=== PATIENT | female | born 1980 | race African-American/Black ===

== ENCOUNTER → 2023-02-08 | Outpatient (CLI) | payer MEDICARE | LOC: DX 10:18 | PROVIDERS: ATTEND Surgery | DX: K44.9 Diaphragmatic hernia without obstruction or gangrene (principal); K21.9 Gastro-esophageal reflux disease without esophagitis; D64.9 Anemia, unspecified | CPT/HCPCS: 74246; 81025 ==

== ENCOUNTER → 2024-04-15 | Day surgery (SDC) | payer MEDICARE ==
[~2024-04-15] MED LIST: ALBUTEROL SULFATE INH; FENTANYL CITRATE/PF 100MCG/2 ML INJ ONE; MULTI-VITAMIN1 EACH PO; PANTOPRAZOLE SO40 MG PO; PHENYLEPHRINE HCL 1% 10 MG/ML VIAL ONE; PROPOFOL IV EMULSION 10 MG/ML 20 ML VIAL ONE; RISPERDAL1 MG/1 ML PO; SYMBICORT 16010.2 GM INH; VITAMIN C1000 MG PO
[2024-04-15] MEDS: ALBUTEROL/IPRATROPIUM 3 ML NEB ONE (10:06)
[2024-04-15 10:35] VITALS: BP 109/74; PULSE 76; RESP 17; TEMP 97; O2SAT 98
[2024-04-15] MEDS: LACTATED RINGER'S 1,000 ML ONE (13:14)
== END | disposition home or self-care (01) ==
LOC: OR 06:38
PROVIDERS: ATTEND Internal Medicine Gastroenterology
DX: K21.00 Gastro-esophageal reflux disease with esophagitis, without bleeding (principal); K29.50 Unspecified chronic gastritis without bleeding; K31.89 Other diseases of stomach and duodenum; K22.10 Ulcer of esophagus without bleeding; K44.9 Diaphragmatic hernia without obstruction or gangrene; D50.9 Iron deficiency anemia, unspecified; R63.4 Abnormal weight loss; G80.9 Cerebral palsy, unspecified; Z79.899 Other long term (current) drug therapy
CPT/HCPCS: 36415; 43239; 84702; 88305; 88312; 88342; J2371; J2704; J3010; J7121

== ENCOUNTER → 2024-06-04 | Outpatient (REF) | payer MEDICARE ==
[~2024-06-04] MED LIST changes: -FENTANYL CITRATE/PF 100MCG/2 ML INJ ONE; -PHENYLEPHRINE HCL 1% 10 MG/ML VIAL ONE; -PROPOFOL IV EMULSION 10 MG/ML 20 ML VIAL ONE
== END ==
LOC: CT 12:52
PROVIDERS: ATTEND Nurse Practitioner Family
DX: D50.9 Iron deficiency anemia, unspecified (principal)
CPT/HCPCS: 74177